=== PATIENT | male | born 1955 | race Caucasian/White ===

== ENCOUNTER 2016-11-11 20:32 | Emergency (ER) | payer MEDICAID, OTHER ==
[~2016-11-11] VITALS: Ht 177.8 cm; Wt 160.0 kg
[2016-11-11] MEDS ORDERED: METHOCARBAMOL 750 MG TABLET PO ONE (22:00)
[2016-11-11] MEDS ORDERED: SODIUM CHLORIDE FLUSH 10ML SYR IVF ONE (22:00)
[2016-11-11] MEDS: SODIUM CHLORIDE 0.9% 1,000ML IVBOLUS ONE ×2 (22:00→22:21)
[2016-11-11] MEDS ORDERED: KETAMINE 100 MG/ML, 5ML IV ONE (22:00)
[2016-11-11] MEDS ORDERED: KETAMINE 10 MG/ML, 20ML ONE (22:26)
[2016-11-11] MEDS ORDERED: METHOCARBAMOL 750 MG TABLET ONE (22:27)
[2016-11-11 22:32] LABS: ASPARTATE AMINO TRANSFERASE 11 U/L (15-37); BLOOD UREA NITROGEN 25 mg/dL (7-18)
[2016-11-11 22:37] LABS: IS PT STATUS REG ER OR PRE ER? YES
[2016-11-11 23:52] VITALS: BP 133/54
== END 2016-11-12 00:57 | disposition home or self-care (01) ==
LOC: ED 11-12 00:35
DX: R07.9 Chest pain, unspecified (principal); M79.662 Pain in left lower leg; M79.661 Pain in right lower leg; R20.8 Other disturbances of skin sensation; E11.9 Type 2 diabetes mellitus without complications; I10 Essential (primary) hypertension
CPT/HCPCS: 36415; 71010; 80053; 82962; 83880; 84484; 85025; 85610; 85730; 93005; 93970; 96361; 96374; 99285; J7030

== ENCOUNTER 2016-11-18 00:55 | Emergency (ER) | payer OTHER, MEDICAID ==
[~2016-11-18] VITALS: Ht 177.8 cm; Wt 160.0 kg
[2016-11-18 00:59] VITALS: BP 110/75
[2016-11-18 02:24] LABS: BLOOD UREA NITROGEN 15 mg/dL (7-18)
== END 2016-11-18 03:47 | disposition home or self-care (01) ==
LOC: ED 02:22
DX: R60.0 Localized edema (principal); M79.661 Pain in right lower leg; G89.29 Other chronic pain; I10 Essential (primary) hypertension; E11.9 Type 2 diabetes mellitus without complications
CPT/HCPCS: 36415; 80048; 82040; 99284

== ENCOUNTER 2016-11-26 20:08 | Emergency (ER) | payer OTHER, MEDICAID ==
[~2016-11-26] VITALS: Ht 177.8 cm; Wt 150.0 kg
[2016-11-26 21:47] LABS: ASPARTATE AMINO TRANSFERASE 15 U/L (15-37); BLOOD UREA NITROGEN 20 mg/dL (7-18)
[2016-11-26 22:50] VITALS: BP 131/68
[2016-11-26] MEDS ORDERED: POTA10CA61 PO (22:50)
[2016-11-26] MEDS ORDERED: FURO-93 PO (22:50)
[2016-11-26] MEDS ORDERED: LIRA0.6P SQ (22:50)
[2016-11-26] MEDS ORDERED: LISI40TA PO (22:50)
[2016-11-26] MEDS ORDERED: METH750T87 PO (22:50)
[2016-11-26] MEDS ORDERED: CLON1PAT8 TP (22:50)
[2016-11-26] MEDS ORDERED: HYDR4TAB48 PO (22:50)
[2016-11-26] MEDS ORDERED: TAMS-11 PO (22:50)
[2016-11-26] MEDS ORDERED: KETOROLAC 30 MG/1 ML IM ONE (23:00)
[2016-11-26] MEDS ORDERED: KETOROLAC 30 MG/1 ML ONE (23:08)
== END 2016-11-27 | disposition home or self-care (01) ==
LOC: ED 21:38
DX: I87.2 Venous insufficiency (chronic) (peripheral) (principal); E87.1 Hypo-osmolality and hyponatremia; G89.29 Other chronic pain; E11.65 Type 2 diabetes mellitus with hyperglycemia; I10 Essential (primary) hypertension; Z88.6 Allergy status to analgesic agent; Z88.0 Allergy status to penicillin; Z88.5 Allergy status to narcotic agent; Z88.8 Allergy status to other drugs, medicaments and biological substances; Z88.2 Allergy status to sulfonamides; Z88.3 Allergy status to other anti-infective agents; Z87.891 Personal history of nicotine dependence
CPT/HCPCS: 36415; 71010; 80053; 83880; 85025; 93005; 93971; 96372; 99285; J1885

== ENCOUNTER 2016-12-06 16:11 | Emergency (ER) | payer OTHER, MEDICAID ==
[~2016-12-06] VITALS: Ht 152.4 cm; Wt 146.7 kg
[~2016-12-06 16:11] MED LIST: CLON1PAT8 TP; FURO-93 PO; HYDR4TAB48 PO; LIRA0.6P SQ; LISI40TA PO; METH750T87 PO; POTA10CA61 PO; TAMS-11 PO
[2016-12-06 16:13] VITALS: BP 128/82
[2016-12-06] MEDS ORDERED: ASPIRIN 81 MG TABLET CHEW PO ONE (16:30)
[2016-12-06] MEDS ORDERED: ONDANSETRON ODT 8 MG PO ONE (16:30)
[2016-12-06] MEDS ORDERED: PLEASE ENTER HEIGHT AND WEIGHT MC SCH (17:00)
[2016-12-06 17:05] LABS: BLOOD UREA NITROGEN 17 mg/dL (7-18)
[2016-12-06 17:12] LABS: IS PT STATUS REG ER OR PRE ER? YES
== END 2016-12-06 18:31 | disposition home or self-care (01) ==
LOC: ED 18:25
DX: T67.5XXA Heat exhaustion, unspecified, initial encounter (principal); E11.65 Type 2 diabetes mellitus with hyperglycemia; I10 Essential (primary) hypertension; E86.9 Volume depletion, unspecified; Z87.891 Personal history of nicotine dependence; Y92.89 Other specified places as the place of occurrence of the external cause
CPT/HCPCS: 36415; 71010; 80048; 82040; 83880; 84484; 85025; 93005; 99285

== ENCOUNTER 2017-02-07 14:34 | Emergency (ER) | payer OTHER, MEDICAID ==
[~2017-02-07] VITALS: Ht 177.8 cm; Wt 147.0 kg
[2017-02-07] MEDS ORDERED: METO-93 PO (15:52)
[2017-02-07] MEDS ORDERED: CYCL-259 PO (15:52)
[2017-02-07] MEDS ORDERED: LORazepam 1MG TABLET ONE (15:53)
[2017-02-07] MEDS ORDERED: LORazepam 1MG TABLET PO ONE (16:00)
[2017-02-07 16:58] VITALS: BP 138/86
== END 2017-02-07 17:02 | disposition home or self-care (01) ==
LOC: ED 15:42
DX: F41.1 Generalized anxiety disorder (principal); G89.4 Chronic pain syndrome; R07.89 Other chest pain; I10 Essential (primary) hypertension; E11.9 Type 2 diabetes mellitus without complications
CPT/HCPCS: 93005; 99283

== ENCOUNTER → 2017-04-04 | Outpatient (CLI) | payer OTHER, MEDICAID ==
[~2017-04-04] MED LIST changes: +CYCL-259 PO; +METO-93 PO
== END | disposition home or self-care (01) ==
LOC: RAD 08:43
PROVIDERS: ATTEND Pain Medicine Interventional Pain Medicine
DX: M47.816 Spondylosis without myelopathy or radiculopathy, lumbar region (principal); M47.817 Spondylosis without myelopathy or radiculopathy, lumbosacral region; M51.27 Other intervertebral disc displacement, lumbosacral region; M51.26 Other intervertebral disc displacement, lumbar region; M48.061 Spinal stenosis, lumbar region without neurogenic claudication; M48.07 Spinal stenosis, lumbosacral region; M51.24 Other intervertebral disc displacement, thoracic region
CPT/HCPCS: 72146; 72148